=== PATIENT | male | born 1995 | race Hispanic/Latino ===

== ENCOUNTER 2018-02-14 22:01 | Emergency (ER) | payer OTHER ==
[2018-02-14] MEDS ORDERED: OCTYL 2-CYANOACRYLATE 1 EACH TP ONE ×2 (23:44→23:46)
[2018-02-14] MEDS ORDERED: LIDOCAINE HCL MPF 1% 5ML VIAL ONE (23:46)
== END 2018-02-15 00:28 | disposition home or self-care (01) ==
LOC: EDH 22:01
DX: S61.215A Laceration without foreign body of left ring finger without damage to nail, initial encounter (principal); S61.213A Laceration without foreign body of left middle finger without damage to nail, initial encounter; S61.412A Laceration without foreign body of left hand, initial encounter; S51.812A Laceration without foreign body of left forearm, initial encounter; W25.XXXA Contact with sharp glass, initial encounter; Y93.89 Activity, other specified; Y92.69 Other specified industrial and construction area as the place of occurrence of the external cause; Y99.8 Other external cause status
CPT/HCPCS: 12002; 12044; 73090; 73130; 99285; J3490